=== PATIENT | male | born 1970 | race Caucasian/White ===

== ENCOUNTER 2017-02-21 06:54 | Emergency (ER) | payer MEDICARE, OTHER ==
[~2017-02-21 06:54] MED LIST: LANTUS SC; LEVAQUIN750 MG PO; NORCO1 TA2 PO; NORCO1 TAB PO; NOVOLOG SC; OCEAN NAS; PRIN20 PO
== END 2017-02-21 11:15 | disposition home or self-care (01) ==
LOC: ER 06:54
DX: G50.0 Trigeminal neuralgia (principal); I10 Essential (primary) hypertension; E11.9 Type 2 diabetes mellitus without complications; Z86.73 Personal history of transient ischemic attack (TIA), and cerebral infarction without residual deficits; Z88.5 Allergy status to narcotic agent; Z79.4 Long term (current) use of insulin; Z79.899 Other long term (current) drug therapy
CPT/HCPCS: 85652; 99285; A9270-GY